=== PATIENT | female | born 1995 | race Caucasian/White ===

== ENCOUNTER 2018-03-06 18:03 | Emergency (ER) | payer OTHER ==
[~2018-03-06] VITALS: Ht 172.7 cm; Wt 74.4 kg
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
[2018-03-06] MEDS ORDERED: IBUPROFEN 800 MG TABLET PO ONE (18:45)
[2018-03-06] MEDS ORDERED: IBUPROFEN 800 MG TABLET ONE (18:58)
--- NOTE | 2018-03-06 20:13 | NUR ---
PATIENT PLACED IN ORTHO BOOT AND FITTED FOR CRUTCHES. PATIENT GIVEN DEMONSTRATION AND RETURNED DEMONSTRATION ON HOW TO UTILIZE CRUTCHES/ ORTHO BOOT
--- NOTE | 2018-03-06 20:14 | NUR ---
Patient discharged to home in stable conditon. Written and verbal after care instructions given. Patient verbalizes understanding of instructions.
[2018-03-06 20:15] VITALS: BP 134/82
== END 2018-03-06 20:18 | disposition home or self-care (01) ==
LOC: ER 18:05
DX: S92.325A Nondisplaced fracture of second metatarsal bone, left foot, initial encounter for closed fracture (principal); S92.335A Nondisplaced fracture of third metatarsal bone, left foot, initial encounter for closed fracture; Z88.5 Allergy status to narcotic agent; W19.XXXA Unspecified fall, initial encounter; Y93.89 Activity, other specified; Y92.89 Other specified places as the place of occurrence of the external cause; Y99.8 Other external cause status
CPT/HCPCS: 73610; 73630; 99284; A4663

== ENCOUNTER 2018-03-28 18:17 | Emergency (ER) | payer OTHER ==
[~2018-03-28] VITALS: Ht 182.9 cm; Wt 74.4 kg
[2018-03-28] MEDS ORDERED: ONDA4TAB5 PO (18:28)
[2018-03-28] MEDS ORDERED: HYDR50CA PO (18:28)
[2018-03-28] MEDS ORDERED: GABA600T2 PO (18:28)
[2018-03-28] MEDS ORDERED: TOPI100T PO (18:28)
[2018-03-28] MEDS ORDERED: SUMA100T16 PO (18:28)
[2018-03-28] MEDS ORDERED: QUET200T PO (18:28)
[2018-03-28] MEDS ORDERED: ATEN25TA PO (18:28)
[2018-03-28] MEDS ORDERED: LAMO200T2 PO (18:28)
[2018-03-28] MEDS ORDERED: LITH300C2 PO (18:28)
[2018-03-28] MEDS ORDERED: LURA80TA PO (18:28)
--- NOTE | 2018-03-28 18:28 | NUR ---
22 years old female walking to er alert, oriented x4 ambulatory with steady gait c/o headache no injury.
[2018-03-28] MEDS ORDERED: KETOROLAC TROMETHAMINE 30 MG INJ ONE (18:58)
[2018-03-28] MEDS ORDERED: diphenhydrAMINE 50 MG/1 ML VIAL ONE (18:58)
[2018-03-28] MEDS ORDERED: METOCLOPRAMIDE HCL 10 MG/2 ML VIAL ONE (18:58)
[2018-03-28] MEDS ORDERED: METOCLOPRAMIDE HCL 10 MG/2 ML VIAL IV ONE (19:00)
[2018-03-28] MEDS ORDERED: diphenhydrAMINE 50 MG/1 ML VIAL IV ONE (19:00)
[2018-03-28] MEDS ORDERED: IV NORMAL SALINE 1000 ML BAG IV ONE (19:00)
[2018-03-28] MEDS ORDERED: KETOROLAC TROMETHAMINE 30 MG INJ IVP ONE (19:00)
[2018-03-28 19:47] LABS: BASOPHILS # (AUTO) 0.2 K/uL (0.0-8.0); BASOPHILS % (AUTO) 1.5 % (0.0-2.0); EOSINOPHILS # (AUTO) 0.3 K/uL (0.0-0.7); HEMATOCRIT 39.9 % (31.2-41.9); HEMOGLOBIN 13.1 g/dL (10.9-14.3); LYMPHOCYTES # (AUTO) 2.9 K/uL (20.0-40.0); LYMPHOCYTES % (AUTO) 25.3 % (20.5-74.5); MEAN CORPUSCULAR HEMOGLOBIN 29.8 uug (24.7-32.8); MEAN CORPUSCULAR HGB CONC 33 g/dL (32.3-35.6); MEAN CORPUSCULAR VOLUME 90.4 fL (75.5-95.3); MONOCYTES % (AUTO) 8.2 % (0-11); NEUTROPHILS # (AUTO) 7.2 K/uL (1.8-8.9); PLATELET COUNT (AUTO) 305 K/uL (179-408); RED BLOOD CELL COUNT(AUTO) 4.42 MIL/uL (3.63-4.92); WHITE BLOOD COUNT (AUTO) 11.6 K/uL (3.8-11.8)
[2018-03-28 19:58] LABS: CARBON DIOXIDE 24 mmol/L (21-32); CHLORIDE 105 mmol/L (98-107); CREATININE 0.8 mg/dL (0.6-1.3); GLUCOSE 67 mg/dL (74-106); POTASSIUM 3.3 mmol/L (3.5-5.1); UREA NITROGEN, BLOOD 15 mg/dL (7-18)
--- NOTE | 2018-03-28 20:42 | NUR ---
IV removed. Catheter intact and site benign. Pressure and 4x4 gauze applied to site. No bleeding noted.
[2018-03-28 20:44] VITALS: BP 124/70
== END 2018-03-28 20:47 | disposition home or self-care (01) ==
LOC: ER 18:17
DX: R51 Headache (principal); Z88.5 Allergy status to narcotic agent
CPT/HCPCS: 36415; 80048; 84702; 85025; 96361; 96374; 96375; 99284; J1200; J1885; J2765; A4663; J7030